=== PATIENT | female | born 1945 | race Caucasian/White ===

== ENCOUNTER → 2016-07-27 | Outpatient (CLI) | payer OTHER ==
[~2016-07-27] MED LIST: LISINOPRIL10 MG PO; NAPROSYN500 MG PO; PRAVACHOL40 MG PO; TRAMADOL HCL50 MG PO; VALIUM5 MG PO
== END | disposition home or self-care (01) ==
LOC: RAD 09:27 → CT 09:27
DX: R51 Headache (principal)
CPT/HCPCS: 70450